=== PATIENT | male | born 1955 | race Caucasian/White ===

== ENCOUNTER 2020-08-05 08:11 | Outpatient (CLI) | payer MEDICARE, OTHER, SELFPAY ==
--- NOTE | 2020-08-05 08:23 | ECG_ITS ---
Measurements Intervals [place] Rate: 85 P: 56 GA: 218 QRS: -65 QRSD: 123 T: 41 QT: 359 QTc: 427 Interpretive Statements SINUS RHYTHM WITH FIRST DEGREE AV BLOCK RIGHT BUNDLE BRANCH BLOCK LEFT ANTERIOR FASCICULAR BLOCK ABNORMAL ECG Electronically Signed On 08-05-2020 8:41:26 CDT by Ismael Aleman D.O.
[2020-08-05 08:52] LABS: Anion Gap 6 mmol/L (8-16); Blood Urea Nitrogen 17 mg/dL (9-20); Calcium 9.1 mg/dL (8.4-10.2); Carbon Dioxide 27 mmol/L (22-30); Chloride 106 mmol/L (98-107); Estimated Glomerular Filt Rate > 60; Glucose 154 mg/dL (75-110); Potassium 4.2 mmol/L (3.4-5.0); Sodium 139 mmol/L (137-145)
== END 2020-08-05 08:12 | disposition home or self-care (01) ==
PROVIDERS: Anesthesiology; PCP Physician Assistant; Visit Provider Urology
DX: Z01.818 Encounter for other preprocedural examination (principal); E11.9 Type 2 diabetes mellitus without complications; R94.31 Abnormal electrocardiogram [ECG] [EKG]
CPT/HCPCS: 36415; 80048; 93005

== ENCOUNTER 2020-08-06 00:58 | Day surgery (SDC) | payer MEDICARE, OTHER, SELFPAY ==
[2020-08-04 14:55] VITALS: BMI 27.9
[2020-08-06] VITALS (9 sets, daily range): BP systolic 127–158; BP diastolic 64–106; PULSE 84–111; RESP 12–20; TEMP 35.9–37.2; O2SAT 93–100; BMI 28.6
--- NOTE | 2020-08-06 06:41 | WPDHPUPDATE1 ---
History and Physical Update Update Date/Time: 08/06/20 06:41 History and Physical has been reviewed, including an updated exam of the patient. There are NO changes in the patient's condition. Risks, benefits, and alternatives have been discussed and questions answered. Patient agrees to proceed with procedure.
[2020-08-06] MEDS: LACTATED RINGERS 1,000 ML 30 ML IV CONT ×2 (11:55→13:13)
--- NOTE | 2020-08-06 12:02 | WPDANESEPPF ---
Anes - Initial Pre Proc Eval Procedure: Operation Date: 08/06/20 14:00 Proposed Procedures p Trans Urethral Resection Bladder Tumor with Gemcitabine Instillation - Ismael Farmer MD Date/Time: 08/06/20 12:02 Surgeon: Ismael Farmer MD Pre Op Diagnosis: bladder tumor Patient Data Age: 64 Gender: M Height: 1.8 m Weight: 91 kg Allergies Allergy/AdvReac Type Severity Reaction Status Date / Time lisinopril AdvReac Cough Verified 08/04/20 14:43 Home Medications Medication Instructions Recorded Confirmed Type alfuzosin 10 mg PO DAILY 08/04/20 08/04/20 History ascorbic acid (vitamin C) 500 mg PO BID 08/04/20 08/04/20 History aspirin 81 mg PO DAILY 08/04/20 08/04/20 History cephalexin 500 mg PO QID 08/04/20 08/04/20 History cholecalciferol (vitamin D3) 25 mcg PO DAILY 08/04/20 08/04/20 History cinnamon bark [Cinnamon] 500 mg PO DAILY 08/04/20 08/04/20 History dulaglutide [Trulicity] 1.5 mg SUBCUT WEEKLY 08/04/20 08/04/20 History losartan 12.5 mg PO QAM 08/04/20 08/04/20 History metformin 1,000 mg PO BID 08/04/20 08/04/20 History multivitamin [Multiple Vitamin] 1 tablet PO DAILY 08/04/20 08/04/20 History [id number] oil [Fish 1 cap PO DAILY 08/04/20 08/04/20 History Oil] oxybutynin chloride 5 mg PO TID 08/04/20 08/04/20 History simvastatin 10 mg PO DAILY 08/04/20 08/04/20 History sitagliptin [Januvia] 100 mg PO QAM 08/04/20 08/04/20 History Patient hx anesthesia problems: none Family hx anesthesia problems: none PMFSH Past Medical History Medical History (Updated 08/06/20 @ 12:02 by Santhosh Hernandez MD) Diabetes HTN (hypertension) Hyperlipidemia Overweight Surgical History Surgical History (Updated 08/06/20 @ 12:06 by Santhosh Hernandez MD) History of carpal tunnel surgery Hx of cystoscopy Social History Social History Smoking packs per day: 1 Smoking cigarettes per day: 20.0 Years smoked: 14 Smoking pack-years: 14.00 Smoking status: Former smoker Smoking end date: 08/06/88 Alcohol intake: former Alcohol use details: SOCIAL DRINKER IN PAST Substance use: never Living arrangements: with family Additional living arrangements comments: Spiritual care concerns: No Anes - Eval Final PreProcedure Day of Procedure 08/06/20 12:02 Patient weight: overweight Heart: regular rate and rhythm Lungs: clear to auscultation Airway: Mallampati scale class II Neurological: alert and oriented Last oral intake: >/= 8 hours ASA classification: III Emergent: no Anesthetic plan: proceed Anesthesia type and monitoring: general LMA and standard monitoring Informed Consent: The patient's anesthetic plan and its attendant risks and benefits were discussed with the patient/family/POA. Questions were solicited and answers provided to the satisfaction of the patient/family/POA.
[2020-08-06 12:06] LABS: Glucose Point of Care 138 mg/dl (65-105)
[2020-08-06] MEDS: ceFAZolin 2 GM/D5W 50 ML 2 GM/50 ML BAG IVPB (12:28)
[2020-08-06] MEDS: LIDOCAINE HCL 2% GEL UROJET 10 ML PKG MUCOUS MEM (12:38)
[2020-08-06] MEDS: fentaNYL CITRATE INJ (*CRX) 100 MCG/2 ML VIAL 25 MCG IV PUSH ×8 (13:20→14:03)
--- NOTE | 2020-08-06 13:33 | W.PM.PROC2 ---
Procedure Note - Detailed Date of Procedure 08/06/20 Pre-op Diagnosis bladder tumor, gross hematuria Post-op Diagnosis same Procedure Performed 1. TURBT (large). 2. Random bladder and prostatic urethra biopsies. Surgeon Ismael Farmer MD Artistic Associate None Anesthesia general Indications Gross heamturia Findings extensive urothelial neoplasm involving much of the posterior and lateral bladder betts. Description of Procedure Patient brought to the operative suite where he has prepped draped in routine sterile fashion while in a dorsal lithotomy position. After the uneventful induction of a general anesthetic and administration of intraurethral lidocaine a 24 F resectoscope was placed in his bladder. This is the 1st time I have seen is bladder S he was previously scoped by an outside urologist. Indeed he has an unusual appearing, sessile neoplasm extending from the interureteric ridge into the posterior bladder wall involving much of the posterior lateral bladder betts, more so on the right. 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 The did aggressive resection with an attempt made to include detrusor muscle for pathological evaluation of invasion. The teens some random biopsies from other parts of his bladder as well as the bladder neck /proximal prostatic urethra. Base and periphery of all the sites were cauterized with a rollerball. Twenty F [address] catheter in. Due to the extent of this resection, and the fact that it is likely an incomplete resection, opted against intravesical chemotherapy postoperatively. Estimated Blood Loss 10 Drains Yes Packing No Pathology yes Complications No immediate complications Condition stable Disposition PACU
--- NOTE | 2020-08-06 14:45 | ADMGEN ---
This patient, Jonas Juárez, was admitted to Medical Room 341-01. Patient/family oriented to hospital policies and general routines including ID bracelet, bed and alarms, visiting hours, pain management, procedures, bathroom and other care routines, personal items, smoking policy, room service/diet, and visiting hours. Information on how to activate the Rapid Response Team has been discussed. Patient/Family are encouraged to report perceived risks to care and to ask questions if they do not understand what they are told or what they should do.
[2020-08-06] MEDS: HYOSCYAMINE SULFATE 0.125 MG TABLET SUBLINGUAL ×2 (15:13→20:44)
[2020-08-06] MEDS: HYDROcodone/acetaminophen (*CRX) 5-325 MG TABLET 1 TAB PO ×2 (15:35→20:43)
[2020-08-06] MEDS: metFORMIN HCL 500 MG TABLET 1000 MG PO (18:52)
[2020-08-06] MEDS: DOCUSATE SODIUM 100 MG CAPSULE PO (18:52)
[2020-08-06 18:55] LABS: Glucose Point of Care 186 mg/dl (65-105)
[2020-08-06] MEDS: MORPHINE SULFATE (*CRX) 2 MG/ML INJ IV PUSH (23:14)
[2020-08-07 04:43] VITALS: BP 139/81; PULSE 96; RESP 17; TEMP 36.4; O2SAT 98
[2020-08-07] MEDS: MORPHINE SULFATE (*CRX) 2 MG/ML INJ IV PUSH (04:54)
[2020-08-07] MEDS: HYOSCYAMINE SULFATE 0.125 MG TABLET SUBLINGUAL ×2 (05:23→12:21)
[2020-08-07 06:41] LABS: Hematocrit 46.1 % (42.0-52.0)
[2020-08-07 06:54] LABS: Anion Gap 7 mmol/L (8-16); Blood Urea Nitrogen 12 mg/dL (9-20); Calcium 8.5 mg/dL (8.4-10.2); Carbon Dioxide 26 mmol/L (22-30); Chloride 104 mmol/L (98-107); Estimated CRCL calculation 76 ml/min; Estimated Glomerular Filt Rate > 60; Glucose 168 mg/dL (75-110); Potassium 3.6 mmol/L (3.4-5.0); Sodium 137 mmol/L (137-145)
--- NOTE | 2020-08-07 07:28 | WPDUROPN2 ---
Progress Note: A&P Assessment and Plan (1) Gross hematuria: Code(s): R31.0 - Gross hematuria Status: Acute (2) Cancer of overlapping sites of bladder: Code(s): C67.8 - Malignant neoplasm of overlapping sites of bladder Status: Acute Assessment and Plan: Catheter out for voiding trial today. Await bladder pathology. Subjective Subjective Date/Time Seen: 08/07/20 07:28 Comfortable, urine clear on slow CBI Review of Systems Cardiovascular: Cardiovascular: Denies chest pain, Denies lightheadedness, Denies palpitations and Denies dyspnea Respiratory: Respiratory: Denies dyspnea Gastrointestinal: Gastrointestinal: Denies diarrhea, Denies nausea and Denies vomiting Genitourinary: Genitourinary: Denies hematuria and Denies dysuria Endocrine: Endocrine: Denies palpitations Exam Const: General: no acute distress Resp: Effort & Inspection: normal respiratory effort GI: Inspection: non-distended GI Palp: No abdominal tenderness and No Guarding due to palpation present (GI) Auscultation: normal bowel sounds Objective Data Vital Signs Vital Signs: Vital Signs - 24 hr 08/06/20 11:33 08/06/20 13:13 08/06/20 13:30 Temperature 98.9 F 98.0 F Pulse Rate 90 93 86 Respiratory Rate 18 12 14 Blood Pressure 127/86 158/106 H 156/99 H Pulse Oximetry 97 93 100 08/06/20 13:31 08/06/20 13:45 08/06/20 14:00 Temperature 96.7 F L Pulse Rate 88 87 84 Respiratory Rate 20 16 14 Blood Pressure 134/80 135/88 139/85 Pulse Oximetry 98 98 98 08/06/20 14:15 08/06/20 15:04 08/06/20 22:36 Temperature 96.7 F L 97.7 F Pulse Rate 85 88 111 H Respiratory Rate 14 20 18 Blood Pressure 138/87 134/80 133/64 Pulse Oximetry 98 98 96 08/07/20 04:43 Temperature 97.6 F Pulse Rate 96 Respiratory Rate 17 Blood Pressure 139/81 Pulse Oximetry 98 Intake/Output Intake/Output: Intake & Output 08/04/20 08/05/20 08/06/20 08/07/20 23:59 23:59 23:59 23:59 Intake Total 30530 Output Total 77963 Balance -1840 Meds/Results Medications: Active Medications Generic Name Dose Route Start Last Admin Trade Name Freq PRN Reason Stop Dose Admin Hydrocodone Bitart/Acetaminophen 1 tab 08/06/20 13:31 08/06/20 20:43 Hydrocodone/Acetaminophen (*Crx) 5-325 Mg Tablet PO 1 tab Q4H PRN Administration Pain Rated 1-6 Alfuzosin HCl 10 mg 08/07/20 09:00 Alfuzosin 10 Mg Er Tablet PO DAILY GOLDY Cephalexin HCl 500 mg 08/07/20 09:00 Cephalexin 500 Mg Capsule PO QID GOLDY Dextrose 12.5 gm 08/06/20 14:26 Dextrose 50% 25 Gm/50 Ml Syringe IV PUSH PRN PRN Hypoglycemia Protocol Docusate Sodium 100 mg 08/06/20 17:00 08/06/20 18:52 Docusate Sodium 100 Mg Capsule PO 100 mg BID GOLDY Administration Fentanyl Citrate 25 mcg 08/06/20 12:06 08/06/20 14:03 Fentanyl Citrate Inj (*Crx) 100 Mcg/2 Ml Vial IV PUSH 25 mcg Q2M PRN Administration Pain Glucagon 1 mg 08/06/20 14:26 Glucagon For Inj 1 Mg Vial IM PRN PRN Hypoglycemia Protocol Glucose 15 gm 08/06/20 14:26 Glucose Oral Gel 15 Gm Of Glucse In 37.5 Gm Tube PO PRN PRN Hypoglycemia Protocol Hyoscyamine 0.125 mg 08/06/20 13:31 08/07/20 05:23 Hyoscyamine Sulfate 0.125 Mg Tablet SUBLINGUAL 0.125 mg Q6H PRN Administration Bladder Spasm Lactated Ringer's 1,000 mls @ 30 mls/hr 08/06/20 11:10 08/06/20 13:13 Lr - Lactated Ringers Iv IV CONT Infused .Q24H GOLDY Infusion Lactated Ringer's 1,000 mls @ 30 mls/hr 08/06/20 12:10 08/06/20 14:31 Lr - Lactated Ringers Iv IV CONT Infused .Q24H GOLDY Infusion Dextrose 1,000 mls @ 100 mls/hr 08/06/20 14:26 Dextrose 5% 1,000 Ml IVPB PRN PRN Hypoglycemia Protocol Insulin Aspart 2 - 5 units 08/06/20 17:00 08/06/20 18:56 Insulin Aspart (*Bkc) 100 Units/Ml SUB-Q Not Given TIDWM GOLDY Protocol Losartan Potassium 12.5 mg 08/07/20 09:00
[2020-08-07] MEDS: metFORMIN HCL 500 MG TABLET 1000 MG PO (08:00)
[2020-08-07] MEDS: CEPHALEXIN 500 MG CAPSULE PO ×2 (08:01→12:23)
[2020-08-07] MEDS: DOCUSATE SODIUM 100 MG CAPSULE PO (08:01)
[2020-08-07] MEDS: LOSARTAN POTASSIUM 12.5 MG TABLET PO (08:01)
[2020-08-07] MEDS: SIMVASTATIN 10 MG TABLET PO (08:01)
[2020-08-07] MEDS: HYDROcodone/acetaminophen (*CRX) 5-325 MG TABLET 1 TAB PO (08:11)
[2020-08-07 08:26] LABS: Glucose Point of Care 116 mg/dl (65-105)
--- NOTE | 2020-08-07 09:16 | WPDANESPN ---
Anes - Prog Note Post-Op Date/Time: 08/07/20 09:16 Cardiovascular status: normal Respiratory status: normal Airway patency: baseline Mental status: baseline Post-Op hydration status: normal Vital Signs: Last Vital Signs Temp 97.6 F 08/07/20 04:43 Pulse 96 08/07/20 04:43 Resp 17 08/07/20 04:43 BP 139/81 08/07/20 04:43 Pulse Ox 98 08/07/20 04:43 Pain Score (VAS): 0 I/O: Intake & Output 08/06/20 08/07/20 08/07/20 23:59 07:59 15:59 Intake Total 11006 240 Output Total 8250 30 Balance 1760 210 Laboratory Tests 08/07/20 05:37 08/07/20 05:37 08/06/20 08/06/20 08/07/20 12:02 18:52 05:37 Hgb 15.0 Hct 46.1 Sodium Potassium Chloride Carbon Dioxide Anion Gap BUN Creatinine Estim Creat Clear Calc Estimated GFR Glucose POC Capillary Glucose 138 H 186 H Calcium 08/07/20 08/07/20 05:37 07:59 Hgb Hct Sodium 137 Potassium 3.6 Chloride 104 Carbon Dioxide 26 Anion Gap 7 L BUN 12 D Creatinine 0.90 Estim Creat Clear Calc 76 Estimated GFR > 60 Glucose 168 H POC Capillary Glucose 116 H Calcium 8.5 Post-procedural complaints: none Patient Feedback: Patient satisfied with anesthetic care.
[2020-08-07] MEDS: INSULIN ASPART (*BKC) 100 UNITS/ML SUB-Q (12:19)
[2020-08-07 12:46] LABS: Glucose Point of Care 253 mg/dl (65-105)
--- NOTE | 2020-08-07 15:24 | PM.DS ---
DS: Admitting Diagnosis Admitting Diagnosis Admitting Diagnosis: Gross hematuria DS: Discharge Diagnosis Discharge Diagnosis (1) Gross hematuria: Code(s): R31.0 - Gross hematuria Status: Acute (2) Cancer of overlapping sites of bladder: Code(s): C67.8 - Malignant neoplasm of overlapping sites of bladder Status: Acute DS: Summary Hospital Course Hospital Course: Patient was recently referred from an outside facility with gross hematuria. An outside urologist done cystoscopy that showed a probable urothelial neoplasm. At the time our operative procedure it appeared to be a sessile, probable pro poorly differentiated urothelial carcinoma. Frozen section suggest urothelial cancer. After resection opted against instillation of intravesical chemotherapy because of the extent of the resection. He was kept overnight for CBI. The following morning his urine was cleared his catheter was removed. After demonstrating him void effectively with discharge. Follow-up arrangements will be made based on the pathology report. Time Spent with Patient Time attestation: Total time spent providing and/or coordinating discharge services: Exam Const: General: no acute distress Resp: Effort & Inspection: normal respiratory effort GI: Inspection: non-distended GI Palp: No abdominal tenderness and No Guarding due to palpation present (GI) Auscultation: normal bowel sounds DS: Data Data Completed and Pending Pending studies at discharge: Pending at discharge 08/06/20 12:48 Surgical [PTH] Routine Labs on day of discharge: Labs from last 24 hours 08/07/20 08/07/20 08/07/20 12:14 07:59 05:37 Hgb Hct Sodium 137 Potassium 3.6 Chloride 104 Carbon Dioxide 26 Anion Gap 7 L BUN 12 D Creatinine 0.90 Estim Creat Clear Calc 76 Estimated GFR > 60 Glucose 168 H POC Capillary Glucose 253 H 116 H Calcium 8.5 08/07/20 08/06/20 05:37 18:52 Hgb 15.0 Hct 46.1 Sodium Potassium Chloride Carbon Dioxide Anion Gap BUN Creatinine Estim Creat Clear Calc Estimated GFR Glucose POC Capillary Glucose 186 H Calcium Discharge Plan Discharge Patient Disposition: Home, Self-Care Discharge Instructions: 1) Activity: No driving or important decisions [id number]. No lifting/straining >15 lbs. [id number]. 2) Diet: Resume normal pre-admission diet. 3) Follow-up: I will contact with pathology report and follow-up instructions. Patient Instructions: Pain Management (DC), How to Quit Using Smokeless Tobacco (GEN), Continuous Bladder Irrigation (GEN), Smokeless Tobacco Keratosis (GEN) Discharge Medications: New hydrocodone-acetaminophen 5-325 mg tablet 1 - 2 tablet PO Q6H PRN (Reason: pain) Qty: 20 RF: 0 cephalexin 500 mg capsule 500 mg PO QID Qty: 12 RF: 0 Continued simvastatin 10 mg tablet 10 mg PO DAILY RF: 0 cephalexin 500 mg capsule 500 mg PO QID RF: 0 metformin 1,000 mg tablet 1,000 mg PO BID RF: 0 losartan 25 mg tablet 12.5 mg PO QAM RF: 0 oxybutynin chloride 5 mg tablet 5 mg PO TID RF: 0 alfuzosin 10 mg tablet extended release 24 hr 10 mg PO DAILY RF: 0 Januvia 100 mg tablet 100 mg PO QAM RF: 0 Trulicity 1.5 mg/0.5 mL pen injector 1.5 mg SUBCUT WEEKLY RF: 0 multivitamin Tablet 1 tablet PO DAILY RF: 0 cholecalciferol (vitamin D3) 25 mcg (1,000 unit) Capsule 25 mcg PO DAILY RF: 0 ascorbic acid (vitamin C) 500 mg Capsule 500 mg PO BID RF: 0 Held aspirin 81 mg tablet,delayed release (DR/EC) 81 mg PO DAILY RF: 0 Hold Instructions: Resume on 08/12/20. cinnamon bark [Cinnamon] 500 mg Capsule 500 mg PO DAILY RF: 0 Hold Instructions: Resume on 08/12/20. Fish Oil 350-600 mg Capsule 1 cap PO DAILY RF: 0 Hold Instructions: Resume on 08/12/20.
[2020-08-07 15:37] VITALS: BP 109/70; PULSE 108; RESP 16; TEMP 36.8; O2SAT 97
== END 2020-08-07 16:07 | disposition home or self-care (01) ==
LOC: ANHSURGERY 11:19 → ANH3MED 14:31
PROVIDERS: PCP Physician Assistant; Visit Provider Urology
PROC: 0TBB8ZZ Excision of Bladder, Via Natural or Artificial Opening Endoscopic (ICD-10-PCS; CPT 52204; principal; 2020-08-06 14:00)
DX: C67.8 Malignant neoplasm of overlapping sites of bladder (principal); R31.0 Gross hematuria; Z79.4 Long term (current) use of insulin; N34.2 Other urethritis; E11.9 Type 2 diabetes mellitus without complications; I10 Essential (primary) hypertension; E78.5 Hyperlipidemia, unspecified; Z79.82 Long term (current) use of aspirin; Z87.891 Personal history of nicotine dependence
CPT/HCPCS: 52204; 52240; 36415; 80048; 82948; 85014; 85018; 88305; 88331; A9270; J0690; J1100; J1815; J2270; J2405; J2704; J3010; J7120; J9201